=== PATIENT | male | born 1955 | race African-American/Black ===

== ENCOUNTER 2021-10-13 16:49 | Inpatient (IN) | payer MEDICARE, OTHER, MEDICAID ==
[2021-10-13] MEDS ORDERED: Nitroglycerin 0.4 MG TAB (25 Tab Bottle) SL PRN (20:32)
[2021-10-13] MEDS ORDERED: Colchicine 0.6 MG TAB PO SCH (20:45)
[2021-10-13] MEDS ORDERED: Enoxaparin Sodium 100 MG/ML SYRINGE SC SCH (21:00)
[2021-10-13] MEDS: Sodium Chloride 0.9% 1,000 ML IV SCH (21:06)
[2021-10-13] MEDS: Metoprolol Tartrate 25 MG TAB PO SCH (21:43)
[2021-10-13] MEDS: HYDROcodone/Acetaminophen 5/325 mg Tablet PO PRN (21:45)
[2021-10-13] MEDS: Nitroglycerin 2% Ointment 1 INCH/1 GM Packet TOP SCH (21:59)
[2021-10-13] MEDS ORDERED: Nitroglycerin 2% Ointment 1 INCH/1 GM Packet TOP SCH (22:00)
[2021-10-13 22:07] LABS: PTT 28.6 sec (22.0-33.0); Prothrombin Time 10.8 sec (9.5-12.1)
[2021-10-13 22:16] LABS: Magnesium 1.7 mg/dL (1.6-2.6); Uric Acid 9.8 mg/dL (3.5-7.2)
[2021-10-13 22:32] LABS: Troponin I 0.303 ng/mL (< 0.028)
[2021-10-13] MEDS ORDERED: Colchicine 0.6 MG TAB PO PRN (23:00)
[2021-10-14 00:05] LABS: Troponin I 0.299 ng/mL (< 0.028)
[2021-10-14 04:57] LABS: #Monocytes 1.5 10x3/uL (0.0-1.1); #Neutrophils 5.6 10x3/uL (1.5-8.4); %Basophils 0.5 % (0.0-2.0); %Lymphocytes 16.7 % (18.0-47.0); %Monocytes 17.4 % (0.0-10.0); %Neutrophils 64.6 % (40.0-75.0); Mean Corpuscular HGB CONC 33.9 g/dL (32.0-36.0); Mean Corpuscular Hemoglobin 30.6 pg (27.0-33.0); Mean Corpuscular Volume 90.1 fl (81.2-95.1); Mean Platelet Volume 11.7 fl (7.4-10.4); Platelet Count 220 10x3/uL (150-450); RBC Distribution Width 13.3 % (11.5-14.5); Red Blood Cell (RBC) Count 4.25 10x6/uL (4.32-5.72); White Blood Cell (WBC) Count 8.7 10x3/uL (3.5-10.5)
[2021-10-14] MEDS: Enoxaparin Sodium 100 MG/ML SYRINGE SC SCH ×2 (05:17→16:22)
[2021-10-14] MEDS: Nitroglycerin 2% Ointment 1 INCH/1 GM Packet TOP SCH ×3 (05:17→23:17)
[2021-10-14 05:23] LABS: ALT (SGPT) 21 U/L (8-55); AST (SGOT) 27 U/L (5-34); Albumin 3.3 g/dL (3.4-4.8); Alkaline Phosphatase 80 U/L (40-110); Anion Gap 16 mmol/L (10-20); BUN (Urea Nitrogen) 5 mg/dL (8.4-25.7); Bilirubin, Total 1.3 mg/dL (0.2-1.2); Calc. Creatinine Clearance 132 mL/min (70-130); Calcium 9.2 mg/dL (7.8-10.44); Carbon Dioxide 18 mmol/L (23-31); Chloride 103 mmol/L (98-107); Cholesterol 110 mg/dl (< 200 Desired); Globulin 3.9 g/dL (2.4-3.5); Glucose 100 mg/dL (80-115); HDL Cholesterol 47 mg/dL (>60 Neg Risk); LDL Cholesterol, Calculated 51 mg/dL; Potassium 3.8 mmol/L (3.5-5.1); Protein, Total 7.2 g/dL (5.8-8.1); Sodium 133 mmol/L (136-145); Triglycerides 60 mg/dL (Less than 150)
[2021-10-14 05:24] LABS: Cardiac Risk 2.3 (Less than 4.5)
[2021-10-14 05:55] LABS: Lymphocytes 18 % (21-51); Monocytes 18 % (0-10)
[2021-10-14 05:56] LABS: Platelet Morphology Comment Appears Adequate; RBC Morphology Normal
[2021-10-14] MEDS: Magnesium Oxide 400 MG TAB PO SCH (08:50)
[2021-10-14] MEDS: Colchicine 0.6 MG TAB PO SCH ×2 (08:51→21:01)
[2021-10-14] MEDS: Aspirin Chewable 81 MG TAB PO SCH (08:51)
[2021-10-14] MEDS: HYDROcodone/Acetaminophen 5/325 mg Tablet PO PRN ×2 (08:51→16:33)
[2021-10-14] MEDS: Metoprolol Tartrate 25 MG TAB PO SCH (08:51)
[2021-10-14] MEDS ORDERED: Communication Order-Pharmacy FS SCH (11:15)
[2021-10-14] MEDS ORDERED: Carvedilol 6.25 MG TAB PO SCH (11:15)
[2021-10-14] MEDS: Carvedilol 6.25 MG TAB PO SCH (16:22)
[2021-10-14] MEDS: Sodium Chloride 0.9% 1,000 ML IV SCH (21:00)
[2021-10-15 05:50] LABS: Hemoglobin 12.3 g/dL (13.5-17.5); Mean Corpuscular HGB CONC 34.9 g/dL (32.0-36.0); Mean Corpuscular Hemoglobin 31.3 pg (27.0-33.0); Mean Corpuscular Volume 89.6 fl (81.2-95.1); Mean Platelet Volume 11.8 fl (7.4-10.4); Platelet Count 215 10x3/uL (150-450); Red Blood Cell (RBC) Count 3.93 10x6/uL (4.32-5.72); White Blood Cell (WBC) Count 10.2 10x3/uL (3.5-10.5)
[2021-10-15 05:57] LABS: PTT 27.6 sec (22.0-33.0); Prothrombin Time 10.7 sec (9.5-12.1)
[2021-10-15 06:14] LABS: Troponin I 0.221 ng/mL (< 0.028)
[2021-10-15 06:15] LABS: ALT (SGPT) 15 U/L (8-55); AST (SGOT) 18 U/L (5-34); Albumin 3.1 g/dL (3.4-4.8); Alkaline Phosphatase 63 U/L (40-110); Anion Gap 15 mmol/L (10-20); BUN (Urea Nitrogen) 7 mg/dL (8.4-25.7); Calc. Creatinine Clearance 138 mL/min (70-130); Calcium 9.1 mg/dL (7.8-10.44); Carbon Dioxide 19 mmol/L (23-31); Cardiac Risk 2.1 (Less than 4.5); Chloride 102 mmol/L (98-107); Cholesterol 103 mg/dl (< 200 Desired); Globulin 3.9 g/dL (2.4-3.5); Glucose 112 mg/dL (80-115); HDL Cholesterol 48 mg/dL (>60 Neg Risk); LDL Cholesterol, Calculated 43 mg/dL; Potassium 3.3 mmol/L (3.5-5.1); Sodium 133 mmol/L (136-145); Triglycerides 58 mg/dL (Less than 150)
[2021-10-15 06:33] LABS: MDiff Complete? YES
[2021-10-15] MEDS: Nitroglycerin 2% Ointment 1 INCH/1 GM Packet TOP SCH (06:36)
[2021-10-15 06:39] LABS: Lymphocytes 15 % (21-51); Monocytes 17 % (0-10); Neutrophil 68 % (42-75); Nucleated RBC 1 % (0)
[2021-10-15 06:41] LABS: Platelet Morphology Comment Appears Adequate
[2021-10-15] MEDS: Aspirin Chewable 81 MG TAB PO SCH (06:57)
[2021-10-15] MEDS: Colchicine 0.6 MG TAB PO SCH (08:41)
[2021-10-15] MEDS: Carvedilol 6.25 MG TAB PO SCH (08:41)
[2021-10-15] MEDS: Magnesium Oxide 400 MG TAB PO SCH (08:41)
[2021-10-15] MEDS ORDERED: Lisinopril 2.5 MG TAB PO SCH (09:00)
[2021-10-15] MEDS ORDERED: Heparin 10,000 UNITS/ 10 ML VIAL ONE (09:11)
[2021-10-15] MEDS ORDERED: Nitroglycerin 50 MG/250 ML BOT 250 ML ONE (09:11)
[2021-10-15] MEDS ORDERED: Lidocaine 1% (PF) 30 ML VIAL ONE (09:11)
[2021-10-15] MEDS ORDERED: Bivalirudin 250 MG VIAL ONE (09:12)
[2021-10-15] MEDS ORDERED: Verapamil 5 MG/2 ML VIAL ONE (09:12)
[2021-10-15] MEDS ORDERED: Adenosine 6 MG/2 ML VIAL ONE (09:12)
[2021-10-15] MEDS ORDERED: Lidocaine 1% MPF 2 ML VIAL ONE (09:33)
[2021-10-15] MEDS ORDERED: Midazolam HCl 2 mg/2 ml Vial ONE (10:05)
[2021-10-15] MEDS ORDERED: Fentanyl 100 MCG/2 ML VIAL ONE (10:05)
[2021-10-15] MEDS ORDERED: Acetaminophen/Codeine 30-300mg Tablet PO PRN ×2 (10:56)
[2021-10-15] MEDS ORDERED: Nitroglycerin 0.4 MG TAB (25 Tab Bottle) SL PRN (10:56)
[2021-10-15] MEDS ORDERED: Sodium Chloride 0.9% 200 ML IV PRN (10:56)
[2021-10-15 11:02] VITALS: TEMP 98.7
[2021-10-15] MEDS ORDERED: Apixaban 5 MG TAB PO SCH ×2 (11:15→21:00)
[2021-10-15] MEDS ORDERED: Potassium Chloride 20 MEQ TAB PO SCH (11:15)
[2021-10-15] MEDS ORDERED: Iopamidol 300 61% 100 ML VIAL FS ONE (13:18)
[2021-10-15 13:33] VITALS: BP 113/67
[2021-10-16] MEDS ORDERED: Lisinopril 5 MG TAB PO SCH (09:00)
== END 2021-10-15 13:33 | disposition home or self-care (01) | DRG 286 ==
LOC: CSHTELE 16:49 → OBSVTOIN 16:49 → CSHTELE 19:45
PROVIDERS: ADMIT Internal Medicine; ATTEND Internal Medicine
PROC: 4A023N7 Measurement of Cardiac Sampling and Pressure, Left Heart, Percutaneous Approach (ICD-10-PCS; principal; 2021-10-15)
PROC: B2111ZZ Fluoroscopy of Multiple Coronary Arteries using Low Osmolar Contrast (ICD-10-PCS; 2021-10-15)
PROC: B2151ZZ Fluoroscopy of Left Heart using Low Osmolar Contrast (ICD-10-PCS; 2021-10-15)
DX: I42.8 Other cardiomyopathies (principal); I50.21 Acute systolic (congestive) heart failure; M10.9 Gout, unspecified; I11.0 Hypertensive heart disease with heart failure; E66.9 Obesity, unspecified; I48.91 Unspecified atrial fibrillation; M19.90 Unspecified osteoarthritis, unspecified site; Z68.30 Body mass index [BMI] 30.0-30.9, adult; Z90.49 Acquired absence of other specified parts of digestive tract
CPT/HCPCS: 36415; 71045; 80053; 80061; 83735; 84484; 84550; 85025; 85610; 85730; 93005; 93010; 93306; 93458; 99152; C1769; C1894; J0153; J0583; J1644; J1650; J2001; J2250; J3010; J7050; Q9967